=== PATIENT | male | born 1990 | race African-American/Black ===

== ENCOUNTER 2020-04-28 20:55 | Emergency (ER) | payer MEDICAID ==
[~2020-04-28] VITALS: Ht 177.8 cm; Wt 80.0 kg
[2020-04-29 03:00] VITALS: BP 127/68
== END 2020-04-29 04:02 | disposition home or self-care (01) ==
LOC: EDBD 20:55 → ER 20:55
DX: F19.129 Other psychoactive substance abuse with intoxication, unspecified (principal); S00.511A Abrasion of lip, initial encounter; V18.0XXA Pedal cycle driver injured in noncollision transport accident in nontraffic accident, initial encounter; Y93.89 Activity, other specified; Y92.488 Other paved roadways as the place of occurrence of the external cause
CPT/HCPCS: 36415; 70486; 80320; 99285; G0480